=== PATIENT | male | born 1940 | race Caucasian/White ===

== ENCOUNTER 2024-09-27 17:12 | Inpatient (IN) | payer MEDICARE, BC ==
[~2024-09-27] VITALS: Ht 172.7 cm; Wt 79.4 kg
[2024-09-27] MEDS: IV NS 0.9% 1,000 ML BAG IV ONE (18:15)
[2024-09-27 18:36] LABS: BASOPHILS % (AUTO) 0.3 % (0.0-2.0); EOSINOPHILS # (AUTO) 0.1 K/uL (0.0-0.7); EOSINOPHILS % (AUTO) 1.6 % (0.0-6.0); HEMATOCRIT 38 % (39-51); HEMOGLOBIN 13.2 g/dL (13.5-17.5); LYMPHOCYTES # (AUTO) 0.2 K/uL (0.8-4.8); LYMPHOCYTES % (AUTO) 3.6 % (20.0-44.0); MEAN CORPUSCULAR HEMOGLOBIN 35 PG (26.0-33.0); MEAN CORPUSCULAR HGB CONC 35 g/dl (31.0-36.0); MEAN CORPUSCULAR VOLUME 102 fL (80-96); MONOCYTES # (AUTO) 0.7 K/uL (0.1-1.30); MONOCYTES % (AUTO) 10.8 % (2.0-12.0); NEUTROPHILS # (AUTO) 5.1 K/uL (1.8-8.9); NEUTROPHILS % (AUTO) 83.7 % (43.0-81.0); PLATELET COUNT (AUTO) 96 K/uL (150-450); RED BLOOD CELL COUNT(AUTO) 3.72 MIL/uL (4.5-6.0); RED CELL DISTRIBUTION WIDTH 15.8 % (11.5-15.0); WHITE BLOOD COUNT (AUTO) 6.1 K/uL (4.3-11.0)
[2024-09-27] MEDS: CEFEPIME 1 GM in IV D5W 50 ML IV ONE (18:40)
[2024-09-27 18:51] LABS: ALANINE AMINOTRANSFERASE 21 U/L (12-78); ALBUMIN 3.3 g/dL (3.4-5.0); ALKALINE PHOSPHATASE 115 U/L (46-116); ASPARTATE AMINOTRANSFERASE 23 U/L (15-37); BILIRUBIN,DIRECT 0.1 mg/dL (0.0-0.2); BILIRUBIN,TOTAL 0.2 mg/dL (0.2-1.0); CALCIUM, SERUM 8.7 mg/dL (8.5-10.1); CARBON DIOXIDE 34 mmol/L (21-32); CHLORIDE 109 mmol/L (98-107); CREATININE 1.4 mg/dL (0.6-1.3); GLUCOSE 131 mg/dL (74-106); POTASSIUM 4.3 mmol/L (3.5-5.1); SODIUM SERUM 143 mmol/L (136-145); TOTAL PROTEIN, SERUM 6.8 g/dL (6.4-8.2); UREA NITROGEN, BLOOD 40 mg/dL (7-18)
[2024-09-27 18:53] LABS: INR 1.08 (0.91-1.10); PARTIAL THROMBOPLASTIN TIME 32.4 SEC (24.3-34.3); PROTHROMBIN TIME 11.4 SECS (9.2-11.1)
[2024-09-27 18:59] LABS: LACTIC ACID 0.8 mmol/L (0.4-2.0)
[2024-09-27 19:05] LABS: EOSINOPHILS % (MANUAL) 1 % (0-4); LYMPHOCYTES % (MANUAL) 4 % (16-48); MONOCYTES % (MANUAL) 9 % (0-11.0); NEUTROPHILS % (MANUAL) 86 (42-76)
[2024-09-27 19:06] LABS: PLATELET ESTIMATE DECREASED
[2024-09-27 19:07] LABS: ANISOCYTOSIS 1+; STOMATOCYTES 1+
[2024-09-27] MEDS: VANCOMYCIN 1 GM in IV D5W 250 ML IV ONE (19:10)
[2024-09-27] MEDS: dexaMETHasone SOD PHOSPHATE 10 MG/ML VIAL IV ONE (20:00)
[2024-09-27] MEDS ORDERED: MAG HYDROX/AL HYDROX/SIMETH 30 ML UDC PO PRN (20:30)
[2024-09-27] MEDS ORDERED: MAGNESIUM HYDROXIDE 30 ML UDC PO PRN (20:30)
[2024-09-27] MEDS ORDERED: ONDANSETRON HCL/PF 4 MG/2 ML VIAL IVP PRN (20:30)
[2024-09-27] MEDS ORDERED: ACETAMINOPHEN 325 MG TABLET PO PRN (20:30)
[2024-09-27] MEDS ORDERED: IPRATROPIUM NEB FS 0.5 MG/2.5 ML AMPUL.NEB NEB PRN (20:30)
[2024-09-27] MEDS: ENOXAPARIN SODIUM 40 MG/0.4 ML DISP.SYRIN SQ SCH (20:30)
[2024-09-27] MEDS ORDERED: ALBUTEROL FS 2.5 MG/0.5 ML VIAL.NEB NEB PRN (20:30)
[2024-09-27] MEDS ORDERED: Z GUARD REMEDY 4 OZ OINT TP PRN (20:30)
[2024-09-27] MEDS ORDERED: dexaMETHasone SOD PHOSPHATE 1 ML ONE (21:23)
[2024-09-27] MEDS ORDERED: ENOXAPARIN SODIUM 40 MG/0.4 ML DISP.SYRIN SQ ONE (22:19)
[2024-09-28] MEDS: IV D5W 1,000 ML IV ONE (06:09)
[2024-09-28] MEDS ORDERED: CEFEPIME 1 GM in IV D5W 50 ML IV SCH (09:00)
[2024-09-28] MEDS ORDERED: dexaMETHasone SOD PHOSPHATE 1 ML ONE (09:15)
[2024-09-28] MEDS ORDERED: PANTOPRAZOLE 40 MG VIAL ONE (09:15)
[2024-09-28] MEDS ORDERED: HYDR-4076 PO (09:27)
[2024-09-28] MEDS ORDERED: IBUP-1955 PO (09:27)
[2024-09-28] MEDS ORDERED: SIMV-46 PO (09:27)
[2024-09-28] MEDS ORDERED: QUET100T PO ×2 (09:27)
[2024-09-28] MEDS ORDERED: DONE10TA44 PO (09:27)
[2024-09-28] MEDS: dexaMETHasone SOD PHOSPHATE 10 MG/ML VIAL IV SCH (09:53)
[2024-09-28] MEDS: CEFEPIME 2 GM in IV D5W 100 ML IV SCH (09:54)
[2024-09-28] MEDS: PANTOPRAZOLE 40 MG VIAL IV SCH (09:54)
[2024-09-28] MEDS ORDERED: VANCOMYCIN HCL 1.25 GM in IV D5W 250 ML IV SCH (10:00)
[2024-09-28 10:05] LABS: BASOPHILS % (AUTO) 0.4 % (0.0-2.0); EOSINOPHILS # (AUTO) 0.1 K/uL (0.0-0.7); EOSINOPHILS % (AUTO) 3.4 % (0.0-6.0); HEMATOCRIT 39 % (39-51); LYMPHOCYTES # (AUTO) 0.3 K/uL (0.8-4.8); LYMPHOCYTES % (AUTO) 7.4 % (20.0-44.0); MEAN CORPUSCULAR HEMOGLOBIN 35 PG (26.0-33.0); MEAN CORPUSCULAR HGB CONC 34 g/dl (31.0-36.0); MEAN CORPUSCULAR VOLUME 104 fL (80-96); MONOCYTES # (AUTO) 0.6 K/uL (0.1-1.30); MONOCYTES % (AUTO) 15.5 % (2.0-12.0); NEUTROPHILS # (AUTO) 2.9 K/uL (1.8-8.9); NEUTROPHILS % (AUTO) 73.3 % (43.0-81.0); PLATELET COUNT (AUTO) 89 K/uL (150-450); RED BLOOD CELL COUNT(AUTO) 3.73 MIL/uL (4.5-6.0); RED CELL DISTRIBUTION WIDTH 15.6 % (11.5-15.0); WHITE BLOOD COUNT (AUTO) 3.9 K/uL (4.3-11.0)
[2024-09-28 10:25] LABS: CALCIUM, SERUM 8.6 mg/dL (8.5-10.1); CREATININE 1.2 mg/dL (0.6-1.3); MAGNESIUM 2.1 mg/dL (1.8-2.4); PHOSPHORUS 2.2 mg/dL (2.5-4.9); POTASSIUM 3.9 mmol/L (3.5-5.1)
[2024-09-28] MEDS: VANCOMYCIN HCL 1.25 GM in IV D5W 250 ML IV SCH (12:19)
[2024-09-28 12:21] LABS: EOSINOPHILS % (MANUAL) 5 % (0-4); LYMPHOCYTES % (MANUAL) 6 % (16-48); MONOCYTES % (MANUAL) 12 % (0-11.0); NEUTROPHILS % (MANUAL) 77 (42-76)
[2024-09-28 12:22] LABS: ANISOCYTOSIS 1+; PLATELET ESTIMATE DECREASED
[2024-09-28 12:23] LABS: STOMATOCYTES 1+
[2024-09-28 17:30] VITALS: BP 156/97; TEMP 97.7; O2SAT 99
[2024-09-28] MEDS: K PHOS NEUTRAL 250 MG TABLET PO ONE (17:43)
[2024-09-28] MEDS: ENOXAPARIN SODIUM 40 MG/0.4 ML DISP.SYRIN SQ SCH (21:37)
[2024-09-28] MEDS: REMDESIVIR (CHARGED) 200 MG, *LOADING DOSE 1 EA in IV NS 0.9% 210 ML IV ONE (21:39)
[2024-09-28 22:00] VITALS: BP 150/85; TEMP 97.3; O2SAT 96
[2024-09-29 06:00] VITALS: BP 141/65; TEMP 97.7; O2SAT 94
[2024-09-29 08:00] VITALS: BP 130/72; TEMP 97.7; O2SAT 94
[2024-09-29 08:33] LABS: BASOPHILS % (AUTO) 0.2 % (0.0-2.0); EOSINOPHILS % (AUTO) 0.5 % (0.0-6.0); HEMATOCRIT 36 % (39-51); HEMOGLOBIN 12.2 g/dL (13.5-17.5); LYMPHOCYTES # (AUTO) 0.3 K/uL (0.8-4.8); LYMPHOCYTES % (AUTO) 11.1 % (20.0-44.0); MEAN CORPUSCULAR HEMOGLOBIN 35 PG (26.0-33.0); MEAN CORPUSCULAR HGB CONC 34 g/dl (31.0-36.0); MEAN CORPUSCULAR VOLUME 104 fL (80-96); MONOCYTES # (AUTO) 0.5 K/uL (0.1-1.30); MONOCYTES % (AUTO) 18.1 % (2.0-12.0); NEUTROPHILS # (AUTO) 2.1 K/uL (1.8-8.9); NEUTROPHILS % (AUTO) 70.1 % (43.0-81.0); PLATELET COUNT (AUTO) 105 K/uL (150-450); RED BLOOD CELL COUNT(AUTO) 3.47 MIL/uL (4.5-6.0); RED CELL DISTRIBUTION WIDTH 15.4 % (11.5-15.0); WHITE BLOOD COUNT (AUTO) 2.9 K/uL (4.3-11.0)
[2024-09-29 08:42] LABS: INR 1.07 (0.91-1.10); PARTIAL THROMBOPLASTIN TIME 33.9 SEC (24.3-34.3); PROTHROMBIN TIME 11.3 SECS (9.2-11.1)
[2024-09-29 08:54] LABS: BILIRUBIN,DIRECT 0.1 mg/dL (0.0-0.2); BILIRUBIN,TOTAL 0.4 mg/dL (0.2-1.0); CALCIUM, SERUM 8.5 mg/dL (8.5-10.1); PHOSPHORUS 2.4 mg/dL (2.5-4.9); POTASSIUM 3.9 mmol/L (3.5-5.1); TOTAL PROTEIN, SERUM 6.2 g/dL (6.4-8.2)
[2024-09-29 10:06] LABS: LYMPHOCYTES % (MANUAL) 7 % (16-48); METAMYELOCYTES % 1 % (0-0); MONOCYTES % (MANUAL) 13 % (0-11.0); MYELOCYTES % 1 % (0-0); NEUTROPHILS % (MANUAL) 76 (42-76); PLATELET ESTIMATE DECREASED; PROMYELOCYTES % 1 % (0-0)
[2024-09-29 10:07] LABS: ANISOCYTOSIS 1+; STOMATOCYTES 1+
[2024-09-29 12:00] VITALS: BP 128/74; TEMP 98.5; O2SAT 98
[2024-09-29 16:00] VITALS: BP 149/75; TEMP 97.3; O2SAT 96
[2024-09-29] MEDS: K PHOS NEUTRAL 250 MG TABLET PO ONE (17:04)
[2024-09-29] MEDS: REMDESIVIR (CHARGED) 100 MG in IV NS 0.9% 80 ML IV SCH (19:53)
[2024-09-29 20:00] VITALS: BP 134/68; TEMP 97.3; O2SAT 95
[2024-09-30] VITALS: BP 134/68; TEMP 97.3; O2SAT 95
[2024-09-30 04:00] VITALS: BP 155/78; TEMP 97.3; O2SAT 97
[2024-09-30 08:00] VITALS: BP 134/109; TEMP 98.2; O2SAT 97
[2024-09-30] MEDS: ENSURE ENLIVE 237 ML LIQUID (VANILLA) PO SCH (08:04)
[2024-09-30 12:00] VITALS: BP 134/109; TEMP 98.2; O2SAT 97
[2024-09-30 13:19] LABS: BILIRUBIN,DIRECT 0.1 mg/dL (0.0-0.2); BILIRUBIN,TOTAL 0.4 mg/dL (0.2-1.0); CALCIUM, SERUM 8.7 mg/dL (8.5-10.1); CREATININE 1.1 mg/dL (0.6-1.3); PHOSPHORUS 2.2 mg/dL (2.5-4.9); POTASSIUM 3.9 mmol/L (3.5-5.1); TOTAL PROTEIN, SERUM 6.5 g/dL (6.4-8.2)
[2024-09-30 16:00] VITALS: BP 137/109; TEMP 98.1; O2SAT 97
[2024-09-30] MEDS: K PHOS NEUTRAL 250 MG TABLET PO ONE (16:15)
[2024-09-30 20:00] VITALS: BP 127/84; TEMP 98.2
[2024-09-30] MEDS: ZOLPIDEM TARTRATE 5 MG TABLET PO PRN (22:33)
[2024-10-01] VITALS: BP 125/80; TEMP 98.1; O2SAT 93
[2024-10-01 04:00] VITALS: BP 135/84; TEMP 98.2; O2SAT 93
[2024-10-01 08:00] VITALS: BP 137/99; TEMP 97.9; O2SAT 97
[2024-10-01 08:30] LABS: BASOPHILS % (AUTO) 0.5 % (0.0-2.0); EOSINOPHILS # (AUTO) 0.1 K/uL (0.0-0.7); EOSINOPHILS % (AUTO) 1.2 % (0.0-6.0); HEMATOCRIT 38 % (39-51); HEMOGLOBIN 13.2 g/dL (13.5-17.5); LYMPHOCYTES # (AUTO) 0.7 K/uL (0.8-4.8); LYMPHOCYTES % (AUTO) 16.2 % (20.0-44.0); MEAN CORPUSCULAR HEMOGLOBIN 35 PG (26.0-33.0); MEAN CORPUSCULAR HGB CONC 35 g/dl (31.0-36.0); MEAN CORPUSCULAR VOLUME 101 fL (80-96); MONOCYTES # (AUTO) 0.8 K/uL (0.1-1.30); MONOCYTES % (AUTO) 19.9 % (2.0-12.0); NEUTROPHILS # (AUTO) 2.6 K/uL (1.8-8.9); NEUTROPHILS % (AUTO) 62.2 % (43.0-81.0); PLATELET COUNT (AUTO) 115 K/uL (150-450); RED BLOOD CELL COUNT(AUTO) 3.76 MIL/uL (4.5-6.0); RED CELL DISTRIBUTION WIDTH 14.9 % (11.5-15.0); WHITE BLOOD COUNT (AUTO) 4.2 K/uL (4.3-11.0)
[2024-10-01 08:34] LABS: INR 1.13 (0.91-1.10); PARTIAL THROMBOPLASTIN TIME 32.7 SEC (24.3-34.3); PROTHROMBIN TIME 11.9 SECS (9.2-11.1)
[2024-10-01 08:35] LABS: BILIRUBIN,TOTAL 0.4 mg/dL (0.2-1.0); CALCIUM, SERUM 8.9 mg/dL (8.5-10.1); CREATININE 1.1 mg/dL (0.6-1.3); MAGNESIUM 2.1 mg/dL (1.8-2.4); PHOSPHORUS 2.8 mg/dL (2.5-4.9); POTASSIUM 3.3 mmol/L (3.5-5.1); TOTAL PROTEIN, SERUM 6.2 g/dL (6.4-8.2)
[2024-10-01] MEDS: PANTOPRAZOLE 40 MG TABLET.DR PO SCH (09:42)
[2024-10-01 12:00] VITALS: BP 159/98; TEMP 98.4; O2SAT 97
[2024-10-01] MEDS: POTASSIUM CHLORIDE 20 MEQ POWDER PACKET PO SCH (12:49)
[2024-10-01 16:00] VITALS: BP 159/98; TEMP 98.4; O2SAT 97
[2024-10-01 22:00] VITALS: BP 148/98; TEMP 98.2; O2SAT 99
[2024-10-02 05:15] VITALS: BP 135/86; TEMP 98; O2SAT 99
[2024-10-02 08:00] VITALS: BP 131/77; TEMP 98.1; O2SAT 97
[2024-10-02 09:01] LABS: BASOPHILS % (AUTO) 0.5 % (0.0-2.0); EOSINOPHILS % (AUTO) 0.7 % (0.0-6.0); HEMATOCRIT 39 % (39-51); HEMOGLOBIN 13.2 g/dL (13.5-17.5); LYMPHOCYTES # (AUTO) 0.8 K/uL (0.8-4.8); LYMPHOCYTES % (AUTO) 14.6 % (20.0-44.0); MEAN CORPUSCULAR HEMOGLOBIN 35 PG (26.0-33.0); MEAN CORPUSCULAR HGB CONC 34 g/dl (31.0-36.0); MEAN CORPUSCULAR VOLUME 102 fL (80-96); MONOCYTES # (AUTO) 0.9 K/uL (0.1-1.30); MONOCYTES % (AUTO) 15.3 % (2.0-12.0); NEUTROPHILS # (AUTO) 3.9 K/uL (1.8-8.9); NEUTROPHILS % (AUTO) 68.9 % (43.0-81.0); PLATELET COUNT (AUTO) 122 K/uL (150-450); RED CELL DISTRIBUTION WIDTH 14.8 % (11.5-15.0); WHITE BLOOD COUNT (AUTO) 5.6 K/uL (4.3-11.0)
[2024-10-02 09:38] LABS: ALBUMIN 3.1 g/dL (3.4-5.0); BILIRUBIN,DIRECT 0.2 mg/dL (0.0-0.2); BILIRUBIN,TOTAL 0.4 mg/dL (0.2-1.0); CALCIUM, SERUM 8.8 mg/dL (8.5-10.1); CREATININE 1.2 mg/dL (0.6-1.3); POTASSIUM 3.5 mmol/L (3.5-5.1); TOTAL PROTEIN, SERUM 6.4 g/dL (6.4-8.2)
[2024-10-02 09:41] LABS: ALBUMIN 3.1 g/dL (3.4-5.0); BILIRUBIN,TOTAL 0.5 mg/dL (0.2-1.0); PHOSPHORUS 2.2 mg/dL (2.5-4.9); POTASSIUM 3.5 mmol/L (3.5-5.1); TOTAL PROTEIN, SERUM 6.4 g/dL (6.4-8.2)
[2024-10-02 09:52] LABS: CALCIUM, SERUM 8.8 mg/dL (8.5-10.1); CREATININE 1.2 mg/dL (0.6-1.3)
[2024-10-02] MEDS ORDERED: LEVO500T90 PO (10:57)
[2024-10-02] MEDS ORDERED: DEXA4TAB68 PO (10:57)
[2024-10-02] MEDS: K PHOS NEUTRAL 250 MG TABLET PO ONE (15:53)
[2024-10-02 16:00] VITALS: BP 161/98; TEMP 98.1; O2SAT 96
[2024-10-02 16:04] LABS: INR 1.15 (0.91-1.10); PARTIAL THROMBOPLASTIN TIME 31.4 SEC (24.3-34.3); PROTHROMBIN TIME 12.1 SECS (9.2-11.1)
[2024-10-02 20:00] VITALS: BP 147/85; TEMP 98.5; O2SAT 94
[2024-10-03 08:00] VITALS: BP 147/85; TEMP 98.5; O2SAT 94
[2024-10-03 08:25] LABS: ALBUMIN 3.2 g/dL (3.4-5.0); BILIRUBIN,DIRECT 0.2 mg/dL (0.0-0.2); BILIRUBIN,TOTAL 0.5 mg/dL (0.2-1.0); CALCIUM, SERUM 8.9 mg/dL (8.5-10.1); CREATININE 1.1 mg/dL (0.6-1.3); POTASSIUM 3.4 mmol/L (3.5-5.1); TOTAL PROTEIN, SERUM 6.6 g/dL (6.4-8.2)
[2024-10-03 08:27] LABS: INR 1.18 (0.91-1.10); PARTIAL THROMBOPLASTIN TIME 33.1 SEC (24.3-34.3); PROTHROMBIN TIME 12.4 SECS (9.2-11.1)
[2024-10-03] MEDS: POTASSIUM CHLORIDE 20 MEQ TAB.PRT.SR PO SCH (09:49)
== END 2024-10-03 11:39 | DRG 177 ==
LOC: ER 17:15 → MEDSG1 21:12 → UNDODISIN 09-28 10:15 → TRANSITION 09-28 11:40 → MEDSG1 09-28 13:46
PROVIDERS: ATTEND Internal Medicine
PROC: XW033E5 Introduction of Remdesivir Anti-infective into Peripheral Vein, Percutaneous Approach, New Technology Group 5 (ICD-10-PCS; principal; 2024-09-28)
DX: U07.1 COVID-19 (principal); G93.41 Metabolic encephalopathy; J12.82 Pneumonia due to coronavirus disease 2019; J96.01 Acute respiratory failure with hypoxia; J15.9 Unspecified bacterial pneumonia; N17.0 Acute kidney failure with tubular necrosis; E44.0 Moderate protein-calorie malnutrition; D61.818 Other pancytopenia; J98.11 Atelectasis; I12.9 Hypertensive chronic kidney disease with stage 1 through stage 4 chronic kidney disease, or unspecified chronic kidney disease; N18.9 Chronic kidney disease, unspecified; F01.50 Vascular dementia, unspecified severity, without behavioral disturbance, psychotic disturbance, mood disturbance, and anxiety; E88.09 Other disorders of plasma-protein metabolism, not elsewhere classified; E66.9 Obesity, unspecified; Z68.26 Body mass index [BMI] 26.0-26.9, adult; Z78.1 Physical restraint status; Z78.9 Other specified health status; Z86.16 Personal history of COVID-19; F09 Unspecified mental disorder due to known physiological condition; R79.89 Other specified abnormal findings of blood chemistry
CPT/HCPCS: 36415; 71045-TC; 76770-TC; 80048-TC; 80053-TC; 80076-TC; 80202-TC; 83605-TC; 83735-TC; 84100-TC; 84484-TC; 85025-TC; 85378-TC; 85610-TC; 85730-TC; 86140-TC; 87040-TC; 87081-TC; 92526; 92611-TC; 93307-TC; 97110-TC; 97530-TC; A4216; A4223; G0378; J0692; J1100; J1650; J2048; J2470; J3370; J7030; J7040; J7050; J7060; J7070; J7120